=== PATIENT | female | born 1995 | race Caucasian/White ===

== ENCOUNTER 2020-12-03 21:41 | Emergency (ER) | payer OTHER ==
[~2020-12-03 21:41] MED LIST: CIPRO250 MG PO; NKHM; PREVACID15 MG PO
== END 2020-12-03 23:53 | disposition home or self-care (01) ==
LOC: ED 21:41
DX: T78.40XA Allergy, unspecified, initial encounter (principal); X58.XXXA Exposure to other specified factors, initial encounter

== ENCOUNTER 2022-09-03 23:45 | Emergency (ER) | payer BC ==
[~2022-09-03] VITALS: Ht 160 cm; Wt 111.1 kg
== END 2022-09-04 02:03 | disposition home or self-care (01) ==
LOC: ED 23:45
DX: K42.9 Umbilical hernia without obstruction or gangrene (principal); R10.9 Unspecified abdominal pain; Z88.1 Allergy status to other antibiotic agents; Z90.89 Acquired absence of other organs

== ENCOUNTER 2022-10-21 21:42 | Emergency (ER) | payer BC ==
[~2022-10-21] VITALS: Ht 160 cm; Wt 104.3 kg
[2022-10-21 22:30] LABS: BASO % 0.3 % (0.0-1.0); EOS # 0.1 10*3/uL (0.0-0.4); HEMATOCRIT 42.9 % (37.0-47.0); LYMPH # 3.8 10*3/uL (1.3-4.4); LYMPH % 37.2 % (27.0-41.0); MEAN CELL VOLUME 87.9 fl (81.0-99.0); MEAN CORPUSCULAR HGB 30.5 pg (27.0-31.0); MEAN CORPUSCULAR HGB CONC 34.7 g/dl (33.0-37.0); MONO # 0.7 10*3/uL (0.1-1.0); MONO % 6.6 % (3.0-9.0); NEUT # 5.7 10*3/uL (2.3-7.9); NEUT % 54.7 % (47.0-73.0); PLATELET COUNT AUTOMATED 264 10*3/uL (130-400); RED BLOOD COUNT 4.88 10*6/uL (4.10-5.10); WHITE BLOOD COUNT 10.3 10*3/uL (4.8-10.8)
[2022-10-21 22:43] LABS: ACT PARTIAL THROMBO TIME 27.3 SECONDS (20.0-32.1)
[2022-10-21 22:54] LABS: BILIRUBIN Negative (Negative); BLOOD Negative (Negative); CLARITY Cloudy (Clear); COLOR Yellow (Yellow); GLUCOSE Negative (Negative); KETONE Trace (Negative); LEUKO ESTERASE Trace (Negative); NITRITE Negative (Negative); SPECIFIC GRAVITY >= 1.030 (1.001-1.030)
[2022-10-21 22:58] LABS: ALKALINE PHOSPHATASE 47 U/L (46-116); BUN 7 mg/dl (9-23); CHLORIDE 109 mmol/L (98-107); LIPASE 40 U/L (12-53); POTASSIUM 3.2 mmol/L (3.4-5.1); SGPT/ALT 15 U/L (10-49); TOTAL PROTEIN 6.7 gm/dL (6.0-8.0)
[2022-10-21 23:04] LABS: BACTERIA 1+; MUCOUS 1+
[2022-10-22] MEDS ORDERED: MIRALAX POWDER17 G1 PO (00:34)
[2022-10-22] MEDS ORDERED: CIPRO500 MG PO (00:34)
== END 2022-10-22 00:42 | disposition home or self-care (01) ==
LOC: ED 21:42
PROVIDERS: Internal Medicine
DX: K59.00 Constipation, unspecified (principal); N39.0 Urinary tract infection, site not specified; Z88.1 Allergy status to other antibiotic agents

== ENCOUNTER 2023-10-19 08:59 | Emergency (ER) | payer OTHER ==
[~2023-10-19] VITALS: Ht 160 cm; Wt 74.8 kg
[~2023-10-19 08:59] MED LIST changes: +CIPRO500 MG PO; +MIRALAX POWDER17 G1 PO
[2023-10-19] MEDS ORDERED: PANTOPRAZOLE SO40 MG PO (09:12)
[2023-10-19] MEDS ORDERED: Carafate1 GM PO (09:12)
[2023-10-19] MEDS ORDERED: METOCLOPRAMIDE H5 M1 PO (09:12)
[2023-10-19] MEDS ORDERED: ACID REDUCER10 MG PO (09:13)
[2023-10-19 09:36] LABS: BILIRUBIN Negative (Negative); BLOOD Negative (Negative); CLARITY Cloudy (Clear); COLOR Yellow (Yellow); GLUCOSE Negative (Negative); KETONE Negative (Negative); LEUKO ESTERASE 2+ (Negative); NITRITE Negative (Negative); UROBILINOGEN 0.2 E.U./dl (0.0-1.0)
[2023-10-19 10:01] LABS: BACTERIA 3+; EPITHELIAL CELLS 31-40; WBC 21-30 wbc/hpf (0-5)
[2023-10-19] MEDS ORDERED: Ondansetron Hydrochloride 4 MG TAB PO ONE (11:15)
[2023-10-19] MEDS ORDERED: Ketorolac Tromethamine 30 MG/ML VIAL IM ONE (11:15)
[2023-10-19 11:32] LABS: BASO % 0.4 % (0.0-1.0); EOS % 0.6 % (1.0-4.0); HEMATOCRIT 41.9 % (37.0-47.0); LYMPH # 2.4 10*3/uL (1.3-4.4); LYMPH % 34.9 % (27.0-41.0); MEAN CELL VOLUME 93.7 fl (81.0-99.0); MEAN CORPUSCULAR HGB 31.3 pg (27.0-31.0); MEAN CORPUSCULAR HGB CONC 33.4 g/dl (33.0-37.0); MEAN PLATELET VOLUME 9.8 fl (9.6-12.3); MONO # 0.5 10*3/uL (0.1-1.0); MONO % 6.8 % (3.0-9.0); NEUT # 3.9 10*3/uL (2.3-7.9); NEUT % 57.2 % (47.0-73.0); PLATELET COUNT AUTOMATED 241 10*3/uL (130-400); RED BLOOD COUNT 4.47 10*6/uL (4.10-5.10); RED CELL DISTRI WIDTH 12.5 % (0-14.5); WHITE BLOOD COUNT 6.8 10*3/uL (4.8-10.8)
[2023-10-19 11:51] LABS: BUN 8 mg/dl (9-23); CHLORIDE 108 mmol/L (98-107)
[2023-10-19] MEDS ORDERED: CEPHALEXIN500 M1 PO (12:21)
[2023-10-19] MEDS ORDERED: PYRIDIUM200 M1 PO (12:21)
[2023-10-19] MEDS ORDERED: Ondansetron4 MG PO (13:04)
== END 2023-10-19 12:25 | disposition home or self-care (01) ==
LOC: ED 08:59
PROVIDERS: Emergency Medicine; Nurse Practitioner Family
DX: N39.0 Urinary tract infection, site not specified (principal); K21.9 Gastro-esophageal reflux disease without esophagitis; Z88.1 Allergy status to other antibiotic agents; Z90.89 Acquired absence of other organs